=== PATIENT | male | born 1950 | race Caucasian/White ===

== ENCOUNTER 2019-06-18 14:36 | Outpatient (CLI) | payer BC, MEDICARE, SELFPAY ==
[2019-06-18 15:30] LABS: Basophils Percent Auto 0.3 % (0.2-1.2); Eosinophils Absolute Auto 0.1 K/mm3 (0-0.3); Hematocrit 37.9 % (42.0-52.0); Hemoglobin 13.2 g/dL (14.0-18.0); Immature Granulocyte Absolute 0.01 K/mm3 (0.00-0.031); Immature Granulocyte Percent A 0.2 % (0-0.5); Lymphocytes Absolute Auto 2.31 K/mm3 (0.9-3.2); Lymphocytes Percent Auto 35.2 % (18.3-44.2); Mean Corpuscular HGB Conc 34.8 g/dl (32-36); Mean Corpuscular Hemoglobin 29.9 pg (26-34); Mean Corpuscular Volume 85.7 fl (80-100); Mean Platelet Volume 10.5 fl (7.4-10.4); Monocytes Absolute Auto 0.6 K/mm3 (0.1-0.6); Monocytes Percent Auto 8.8 % (2.6-8.5); Neutrophils Absolute Auto 3.5 K/mm3 (1.3-6.7); Neutrophils Percent Auto 53.5 % (45.5-73.1); Platelet Count Result 258 k/mm3 (150-375); Red Blood Count 4.42 M/mm3 (4.6-6.20); Red Cell Distribution Width 13.2 % (11.5-14.5); White Blood Count 6.6 K/mm3 (4.5-10.0)
[2019-06-18 15:39] LABS: Alanine Aminotransferase 29 U/L (4-50); Albumin Level 4.2 g/dL (3.5-5.1); Alkaline Phosphatase 22 U/L (38-126); Aspartate Amino Transferase 29 U/L (17-59); Bilirubin,Total 0.3 mg/dL (0.2-1.3); Blood Urea Nitrogen 29 mg/dL (9-20); Calcium 9.5 mg/dL (8.4-10.2); Carbon Dioxide 24 mmol/L (22-30); Chloride 102 mmol/L (98-107); Estimated Glomerular Filt Rate 47; Glucose 109 mg/dL (75-110); Potassium 4.1 mmol/L (3.4-5.0); Sodium 140 mmol/L (137-145)
== END 2019-06-18 14:37 | disposition home or self-care (01) ==
PROVIDERS: Visit Provider Internal Medicine Cardiovascular Disease
DX: I25.10 Atherosclerotic heart disease of native coronary artery without angina pectoris (principal)
CPT/HCPCS: 36415; 80053; 85025

== ENCOUNTER → 2019-10-01 09:08 | Outpatient (REF) | payer MEDICARE, BC, SELFPAY | LOC: ANHLAB 09:08 | PROVIDERS: Visit Provider Nurse Practitioner Family | DX: C44.329 Squamous cell carcinoma of skin of other parts of face (principal) | CPT/HCPCS: 88305; 88331 ==

== ENCOUNTER 2021-02-02 12:25 | Outpatient (CLI) | payer MEDICARE, SELFPAY ==
[2021-02-02 13:07] LABS: Alanine Aminotransferase 32 U/L (4-50); Albumin Level 4.8 g/dL (3.5-5.1); Alkaline Phosphatase 25 U/L (38-126); Anion Gap 9 mmol/L (8-16); Aspartate Amino Transferase 34 U/L (17-59); Bilirubin,Total 0.7 mg/dL (0.2-1.3); Blood Urea Nitrogen 26 mg/dL (9-20); Calcium 9.7 mg/dL (8.4-10.2); Carbon Dioxide 28 mmol/L (22-30); Chloride 101 mmol/L (98-107); Estimated Glomerular Filt Rate 50; Glucose 99 mg/dL (65-110); Potassium 4.3 mmol/L (3.4-5.0); Sodium 138 mmol/L (137-145)
== END 2021-02-02 12:26 | disposition home or self-care (01) ==
LOC: ANHLAB 12:33
PROVIDERS: Visit Provider Internal Medicine Cardiovascular Disease
DX: N18.9 Chronic kidney disease, unspecified (principal)
CPT/HCPCS: 36415; 80053

== ENCOUNTER 2022-03-14 12:12 | Emergency (ER) | payer MEDICARE, SELFPAY ==
--- NOTE | ~2022-03-14 | XR_ITS ---
EXAMINATION: XR elbow LT min 3V DATE: 03/14/2022 12:38 INDICATION: Posterior left elbow pain post fall TECHNIQUE: Anteroposterior, two oblique and lateral views of the left elbow were obtained. COMPARISON: None. FINDINGS: Comminuted intra-articular fracture extending transversely through the olecranon with distraction of the main proximal fragment which includes the posterior third of the articular surface. The distracti on results in a 7 mm lucent fracture gap at the articular surface. There appears to be a second mildl y displaced fragment involving the central portion of the ulnar articular surface with approximately 1-2 mm lucent fracture gap and similar degree of step off relative to the anterior third of the artic ular surface. Small linear calcific density along the lateral margin of the lateral humeral condyle w hich could represent sequela of an avulsion fracture of the humeral footplate of the radial collatera l ligament complex. Alternatively this could represent enthesopathic calcification or heterotopic oss ification related to chronic trauma. 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 The radiocapitellar articulation with subarticular cystlike changes at the rad ial head. Left elbow joint effusion with displacement of the anterior fat pad. Prominent soft tissue swelling with subcutaneous edema primarily along the posterior and ulnar sides of the elbow, distal u pper arm and proximal forearm. IMPRESSION: 1. Mild to moderately displaced comminuted intra-articular fracture at the base of the olecranon. 2. Possible avulsion fracture of the humeral footplate of the radial collateral ligament complex. 3. 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 Reviewed, dictated and finalized at location B. AGE GRINDER
[2022-03-14 12:23] VITALS: BP 170/80; PULSE 92; RESP 16; TEMP 36.2; O2SAT 99
--- NOTE | 2022-03-14 12:40 | ED.UPPEXIN ---
HPI - Extremity Injury (Upper) General Chief Complaint: Extremity Injury, Upper Stated Complaint: left arm pain Time Seen by Provider: 03/14/22 12:45 Source: patient, RN notes reviewed and old records reviewed Mode of arrival: ambulatory Limitations: no limitations History of Present Illness HPI narrative: 71-year-old male presents to the [facility] with left elbow pain and swelling. Patient states that he tripped and fell landing on his elbow yesterday. Has full range of motion the wrist, strong steam fitter, sensation intact in all 5 fingers. Positive radial pulse with capillary refill under 2 seconds. Significant swelling noted posterior elbow. No tenderness of the proximal humerus or shoulder. No midline tenderness. Patient denies hitting head or loss of consciousness. Related Data Home Medications Medication Instructions Recorded Confirmed lisinopril 40 mg tablet 40 mg PO DAILY 03/14/22 03/14/22 ticagrelor 60 mg tablet (Brilinta) 60 mg PO DAILY 03/14/22 03/14/22 Allergies Allergy/AdvReac Type Severity Reaction Status Date / Time No Known Allergies Allergy Verified 03/14/22 12:20 Review of Systems Review of Systems: All systems reviewed & are unremarkable except as noted in HPI and below Constitutional: Constitutional: Reports no additional constitutional complaints, Denies chills and Denies fever(s) Eyes: Eyes: Reports no additional eye complaints ENT: Reports system reviewed and no additional complaints, except as documented Cardiovascular: Cardiovascular: Reports no additional cardiovascular complaints Respiratory: Respiratory: Reports no additional respiratory complaints Gastrointestinal: Gastrointestinal: Reports no additional gastrointestinal complaints Musculoskeletal: Musculoskeletal: Reports as per HPI, Reports arthralgias (Left elbow) and Reports joint swelling (Left elbow) Integumentary/Breasts: Skin/Breast: Reports system reviewed and no additional complaints, except as docu Neurologic: Reports system reviewed and no additional complaints, except as documented Psychiatric: Psychiatric: Reports no additional psychiatric complaints Allergic/Immunologic: Allergic/Immunologic: Reports no additional allergic/immunologic complaints [facility] Past Medical History Medical History Hypertension Surgical History Surgical History History of carpal tunnel release History of heart artery stent Family History Family History Father Hypertension Family history of heart disease in male family member before age 55 Mother Hypertension Family history of coronary artery disease Grandparent Family history of heart disease in male family member before age 55 Social History Social History Smoking status: Never smoker Alcohol intake: current Comments At the time of my signature, I reviewed and agree with the nursing past medical, surgical, social, and family history. There is no relevant family history pertinent to the patient complaint. Exam Const: General: healthy appearing, comfortable, no acute distress, well developed, alert and well nourished Nutritional Appearance: well nourished Orientation/consciousness: patient oriented x3 Limitations: no limitations HENMT: Head: normal to inspection Ears: external ears normal Face/Nose/Sinus: Normal external nose present Eyes: General: appearance normal, both eyes and all related structures Conjunctivae: conjunctivae normal Pupils: Equal, round and reactive pupils present Neck: Neck: normal visual inspection, full ROM, no lymphadenopathy and no meningeal signs Chest: Chest palpation & inspection: normal inspection of the chest Resp: Effort & Inspection: normal respiratory effort and no use of accessory muscles Auscultation: clear t
== END 2022-03-14 13:29 | disposition home or self-care (01) ==
PROVIDERS: Emergency Provider Nurse Practitioner; PCP Family Medicine
DX: S42.402A Unspecified fracture of lower end of left humerus, initial encounter for closed fracture (principal); I10 Essential (primary) hypertension; W01.0XXA Fall on same level from slipping, tripping and stumbling without subsequent striking against object, initial encounter
CPT/HCPCS: 29105; 73080; 99214; A4565; G0463

== ENCOUNTER 2022-03-29 08:42 | Outpatient (CLI) | payer MEDICARE, SELFPAY ==
--- NOTE | ~2022-03-29 | US_ITS ---
EXAMINATION: US carotid duplex BI DATE: 03/29/2022 09:39 INDICATION: Bilateral carotid stenosis TECHNIQUE: Grayscale, color Doppler, and pulsed Doppler images of the cervical carotid arteries were obtained. The degree of vessel stenosis is placed in one of the following categories: normal, <50%, 5 0-69%, >=70% but less than near-occlusion, near-occlusion, or total occlusion. Note that percent sten osis relative to normal distal artery lumen diameter is indirectly measured from velocity measurement s as described by Howard, et al. Radiology 2003; 229:340-346. Notes: Normal: Peak systolic velocity <125 centimeters/sec and no plaque <50%. Peak systolic velocity <125 ( EDV <40; ICA/CCA PSV ratio <2.0; used these factors only a tandem lesions or low cardiac output or co ntralateral disease) 50-69 %: PSV 125-230 (EDV 40-100; ratio 2-4) >= 70% but less than near occlusion: PSV greater than 230 (EDV > 100; ratio> 4.0) Near Occlusion: PSV that is variable; markedly narrowed lumen Occlusion: Absent flow on color/spectral Doppler and no lumen on garcia scale. COMPARISON: None. FINDINGS: RIGHT: The right common carotid artery (CCA) peak systolic velocity (PSV) is 79 cm/s. The right internal car otid artery (ICA) PSV is 88 cm/s. The right ICA end-diastolic velocity (EDV) is 25 cm/s. The right IC A/CCA PSV ratio is 1.1. The external carotid artery (ECA) PSV is 86 cm/s. There is to and fro flow in the right vertebral artery. LEFT: The left CCA PSV is 74 cm/s. The left ICA PSV is 73 cm/s. The left ICA EDV is 19 cm/s. The left ICA/C CA PSV ratio is 1.0. The ECA PSV is 94 cm/s. There is antegrade flow in the left vertebral artery. IMPRESSION: 1. Less than 50% stenosis in the right internal carotid artery by sonographic criteria. 2. Less than 50% stenosis in the left internal carotid artery by sonographic criteria. 3: To-and-fro flow within the right vertebral artery. Reviewed, dictated and finalized at location A. EMENT CLERKS MANAGER IMPRESSION: 1. Less than 50% stenosis in the right internal carotid artery by sonographic c riteria. 2. Less than 50% stenosis in the left internal carotid artery by sonographic cr iteria. 3: To-and-fro flow within the right vertebral artery.
== END 2022-03-29 08:43 | disposition home or self-care (01) ==
PROVIDERS: PCP Family Medicine; Visit Provider Internal Medicine Cardiovascular Disease
DX: I65.23 Occlusion and stenosis of bilateral carotid arteries (principal)
CPT/HCPCS: 93880

== ENCOUNTER 2022-06-07 11:03 | Outpatient (CLI) | payer MEDICARE, SELFPAY ==
[2022-06-07 20:21] LABS: Basophils Percent Auto 0.6 % (0.2-1.2); Eosinophils Absolute Auto 0.1 K/mm3 (0-0.3); Eosinophils Percent Auto 1.7 % (0-4.4); Hematocrit 40.8 % (42.0-52.0); Hemoglobin 13.1 g/dL (14.0-18.0); Immature Granulocyte Absolute 0.01 K/mm3 (0.00-0.031); Immature Granulocyte Percent A 0.2 % (0-0.5); Lymphocytes Absolute Auto 2.26 K/mm3 (0.9-3.2); Lymphocytes Percent Auto 42.2 % (18.3-44.2); Mean Corpuscular HGB Conc 32.1 g/dl (32-36); Mean Corpuscular Hemoglobin 29.1 pg (26-34); Mean Corpuscular Volume 90.7 fl (80-100); Mean Platelet Volume 11.2 fl (7.4-10.4); Monocytes Absolute Auto 0.4 K/mm3 (0.1-0.6); Neutrophils Absolute Auto 2.5 K/mm3 (1.3-6.7); Neutrophils Percent Auto 47.3 % (45.5-73.1); Platelet Count Result 322 k/mm3 (150-375); White Blood Count 5.4 K/mm3 (4.5-10.0)
[2022-06-07 20:59] LABS: Alanine Aminotransferase 26 U/L (6-50); Albumin Level 4.2 g/dL (3.5-5.1); Alkaline Phosphatase 28 U/L (38-126); Anion Gap 6 mmol/L (8-16); Aspartate Amino Transferase 48 U/L (17-59); Bilirubin,Total 0.6 mg/dL (0.2-1.3); Blood Urea Nitrogen 20 mg/dL (9-20); Calcium 9.3 mg/dL (8.4-10.2); Carbon Dioxide 30 mmol/L (22-30); Chloride 102 mmol/L (98-107); Cholesterol 232 mg/dL (0-200); Estimated Glomerular Filt Rate 46; Glucose 90 mg/dL (65-110); HDL Direct 24 mg/dL; Potassium 4.5 mmol/L (3.4-5.0); Sodium 138 mmol/L (137-145); Triglycerides 232 mg/dL (<150)
[2022-06-07 21:10] LABS: LDL Cholesterol Direct 148 mg/dL
[2022-06-07 21:32] LABS: Prostate Specific Antigen 0.9 ng/mL (< OR = 4.0)
== END 2022-06-07 11:04 | disposition home or self-care (01) ==
PROVIDERS: PCP Family Medicine; Visit Provider Family Medicine
DX: Z12.5 Encounter for screening for malignant neoplasm of prostate (principal); Z00.00 Encounter for general adult medical examination without abnormal findings; Z79.899 Other long term (current) drug therapy
CPT/HCPCS: 36415; 80053; 80061; 84153; 85025; G0103

== ENCOUNTER 2023-05-22 13:12 | Outpatient (CLI) | payer MEDICARE, SELFPAY ==
[2023-05-22 13:52] LABS: Basophils Percent Auto 0.5 % (0.2-1.2); Eosinophils Absolute Auto 0.1 K/mm3 (0-0.3); Eosinophils Percent Auto 1.3 % (0-4.4); Hematocrit 39.4 % (42.0-52.0); Hemoglobin 13.4 g/dL (14.0-18.0); Immature Granulocyte Absolute 0.02 K/mm3 (0.00-0.031); Immature Granulocyte Percent A 0.3 % (0-0.5); Lymphocytes Absolute Auto 2.58 K/mm3 (0.9-3.2); Lymphocytes Percent Auto 33.2 % (18.3-44.2); Mean Corpuscular Hemoglobin 30.2 pg (26-34); Mean Corpuscular Volume 88.7 fl (80-100); Mean Platelet Volume 10.3 fl (7.4-10.4); Monocytes Absolute Auto 0.6 K/mm3 (0.1-0.6); Monocytes Percent Auto 7.3 % (2.6-8.5); Neutrophils Absolute Auto 4.5 K/mm3 (1.3-6.7); Neutrophils Percent Auto 57.4 % (45.5-73.1); Platelet Count Result 298 k/mm3 (150-375); Red Blood Count 4.44 M/mm3 (4.6-6.20); Red Cell Distribution Width 12.7 % (11.5-14.5); White Blood Count 7.8 K/mm3 (4.5-10.0)
[2023-05-22 14:02] LABS: Alanine Aminotransferase 28 U/L (6-50); Albumin Level 4.2 g/dL (3.5-5.1); Alkaline Phosphatase 26 U/L (38-126); Anion Gap 9 mmol/L (8-16); Aspartate Amino Transferase 29 U/L (17-59); Bilirubin,Total 0.6 mg/dL (0.2-1.3); Blood Urea Nitrogen 29 mg/dL (9-20); Calcium 9.5 mg/dL (8.4-10.2); Carbon Dioxide 26 mmol/L (22-30); Chloride 104 mmol/L (98-107); Estimated Glomerular Filt Rate 46; Glucose 93 mg/dL (65-110); Potassium 5.2 mmol/L (3.4-5.0); Sodium 139 mmol/L (137-145)
== END 2023-05-22 13:13 | disposition home or self-care (01) ==
PROVIDERS: PCP Family Medicine; Visit Provider Internal Medicine Cardiovascular Disease
DX: Z01.810 Encounter for preprocedural cardiovascular examination (principal); R94.39 Abnormal result of other cardiovascular function study
CPT/HCPCS: 36415; 80053; 85025

== ENCOUNTER 2023-07-24 13:01 | Outpatient (CLI) | payer MEDICARE, SELFPAY ==
[2023-07-24 13:57] LABS: Anion Gap 8 mmol/L (4-12); Blood Urea Nitrogen 23 mg/dL (9-20); Calcium 9.7 mg/dL (8.4-10.2); Carbon Dioxide 26 mmol/L (22-30); Chloride 103 mmol/L (98-107); Estimated Glomerular Filt Rate 43; Glucose 108 mg/dL (65-110); Potassium 4.1 mmol/L (3.4-5.0); Sodium 137 mmol/L (137-145)
== END 2023-07-24 13:02 | disposition home or self-care (01) ==
PROVIDERS: PCP Family Medicine; Visit Provider Family Medicine
DX: E87.5 Hyperkalemia (principal)
CPT/HCPCS: 36415; 80048

== ENCOUNTER 2024-01-08 14:28 | Outpatient (CLI) | payer MEDICARE, SELFPAY ==
--- NOTE | ~2024-01-08 | XR_ITS ---
XR hand RT min 3V Ordering provider: Jesus Manjarrez MD History: . PAIN IN 4TH DIGIT, UNABLE TO MOVE FINGER, NO INJURY . Comparison: None. FINDINGS: BONES: No acute fracture or dislocation. JOINT SPACES: Narrowing of the distal interphalangeal joints suggestive of osteoarthritic changes. SOFT TISSUES: Normal. IMPRESSION: No acute osseous abnormality right hand. Reviewed, dictated and finalized at location A.
[2024-01-08 14:43] LABS: Hemoglobin 12.5 g/dL (14.0-18.0); Mean Corpuscular HGB Conc 33.8 g/dl (32-36); Mean Corpuscular Hemoglobin 30.1 pg (26-34); Mean Corpuscular Volume 89.2 fl (80-100); Mean Platelet Volume 9.7 fl (7.4-10.4); Platelet Count Result 334 k/mm3 (150-375); Red Blood Count 4.15 M/mm3 (4.6-6.20); Red Cell Distribution Width 13.2 % (11.5-14.5); White Blood Count 7.8 K/mm3 (4.5-10.0)
[2024-01-08 14:55] LABS: Alanine Aminotransferase 31 U/L (6-50); Albumin Level 4.6 g/dL (3.5-5.1); Alkaline Phosphatase 29 U/L (38-126); Anion Gap 11 mmol/L (4-12); Aspartate Amino Transferase 30 U/L (17-59); Bilirubin,Total 0.6 mg/dL (0.2-1.3); Blood Urea Nitrogen 29 mg/dL (9-20); Carbon Dioxide 27 mmol/L (22-30); Chloride 102 mmol/L (98-107); Cholesterol 229 mg/dL (0-200); Estimated Glomerular Filt Rate 37; Glucose 100 mg/dL (65-110); HDL Direct 34 mg/dL; Potassium 5.1 mmol/L (3.4-5.0); Sodium 140 mmol/L (137-145); Triglycerides 178 mg/dL (<150)
[2024-01-08 15:05] LABS: LDL Cholesterol Direct 168 mg/dL
[2024-01-08 15:39] LABS: Prostate Specific Antigen 0.9 ng/mL (< OR = 4.0)
== END 2024-01-08 14:29 | disposition home or self-care (01) ==
LOC: ANHIMG 14:28
PROVIDERS: PCP Family Medicine; Visit Provider Family Medicine
DX: Z12.5 Encounter for screening for malignant neoplasm of prostate (principal); M25.541 Pain in joints of right hand; E78.00 Pure hypercholesterolemia, unspecified; E87.5 Hyperkalemia; G47.30 Sleep apnea, unspecified; I10 Essential (primary) hypertension; I21.9 Acute myocardial infarction, unspecified
CPT/HCPCS: 36415; 73130; 80053; 80061; 84153; 85027; G0103

== ENCOUNTER 2024-01-17 09:00 | Outpatient (CLI) | payer MEDICARE, SELFPAY ==
[2024-01-17 10:08] LABS: Mean Corpuscular HGB Conc 34.2 g/dl (32-36); Mean Corpuscular Hemoglobin 30.7 pg (26-34); Mean Corpuscular Volume 89.6 fl (80-100); Mean Platelet Volume 10.4 fl (7.4-10.4); Platelet Count Result 309 k/mm3 (150-375); Red Blood Count 4.24 M/mm3 (4.6-6.20); Red Cell Distribution Width 12.9 % (11.5-14.5); White Blood Count 5.8 K/mm3 (4.5-10.0)
[2024-01-17 10:16] LABS: Alanine Aminotransferase 25 U/L (6-50); Albumin Level 4.8 g/dL (3.5-5.1); Alkaline Phosphatase 25 U/L (38-126); Anion Gap 10 mmol/L (4-12); Aspartate Amino Transferase 27 U/L (17-59); Bilirubin,Total 0.7 mg/dL (0.2-1.3); Blood Urea Nitrogen 32 mg/dL (9-20); Calcium 9.9 mg/dL (8.4-10.2); Carbon Dioxide 27 mmol/L (22-30); Chloride 98 mmol/L (98-107); Cholesterol 235 mg/dL (0-200); Estimated Glomerular Filt Rate 33; Glucose 99 mg/dL (65-110); HDL Direct 33 mg/dL; Potassium 5.1 mmol/L (3.4-5.0); Sodium 135 mmol/L (137-145); Triglycerides 156 mg/dL (<150)
[2024-01-17 10:27] LABS: LDL Cholesterol Direct 164 mg/dL
[2024-01-17 10:33] LABS: Iron 101 ug/dL (49-181)
[2024-01-17 10:40] LABS: Creatinine Urine 134.3 mg/dL
[2024-01-17 10:42] LABS: Percent Iron Saturation 37 % (20-50)
[2024-01-17 10:44] LABS: MALB Creatinine Ratio 33.6 mg/g (0-30); Microalbumin Urine Random 45.1 mg/L (0-16.7)
[2024-01-17 10:46] LABS: Prostate Specific Antigen 1.2 ng/mL (< OR = 4.0)
[2024-01-17 10:47] LABS: Hemoglobin A1C 6.2 % (<5.7)
== END 2024-01-17 09:01 | disposition home or self-care (01) ==
PROVIDERS: PCP Family Medicine; Visit Provider Family Medicine
DX: D64.9 Anemia, unspecified (principal); Z12.5 Encounter for screening for malignant neoplasm of prostate; E11.22 Type 2 diabetes mellitus with diabetic chronic kidney disease; N18.9 Chronic kidney disease, unspecified
CPT/HCPCS: 36415; 80053; 80061; 82043; 82607; 82728; 83036; 83540; 83550; 84153; 85027; G0103

== ENCOUNTER 2024-01-21 10:16 | Outpatient (CLI) | payer MEDICARE, SELFPAY ==
[2024-01-21 10:59] LABS: IFOB Positive Control Positive; Immunochemical Fecal Occult Bl Negative (N)
== END 2024-01-21 10:17 | disposition home or self-care (01) ==
PROVIDERS: PCP Family Medicine; Visit Provider Family Medicine
DX: D64.9 Anemia, unspecified (principal)
CPT/HCPCS: 82274

== ENCOUNTER 2024-04-10 14:17 | Outpatient (CLI) | payer MEDICARE, SELFPAY ==
--- NOTE | ~2024-04-10 | US_ITS ---
EXAMINATION: US renal BI DATE: 04/10/2024 14:59 INDICATION: Chronic kidney disease, stage III. TECHNIQUE: Multiple ultrasound grayscale images of the kidneys were obtained. COMPARISON: Ultrasound 01/12/2018 FINDINGS: The right kidney measures 10.4 x 4.6 x 3.7 cm. The left kidney measures 12.1 x 4.6 x 3.6 cm. The kidn eys demonstrate normal parenchymal echogenicity. There is no hydronephrosis. The bladder is normal. IMPRESSION: 1. Normal kidneys. No hydronephrosis. Reviewed, dictated and finalized at location A. OR ART DIRECTOR
== END 2024-04-10 14:18 | disposition home or self-care (01) ==
PROVIDERS: PCP Family Medicine; Visit Provider Internal Medicine Nephrology
DX: N18.32 Chronic kidney disease, stage 3b (principal); I10 Essential (primary) hypertension
CPT/HCPCS: 76775

== ENCOUNTER 2024-05-10 10:06 | Outpatient (CLI) | payer MEDICARE, SELFPAY ==
[2024-05-10 10:39] LABS: Albumin Level 4.4 g/dL (3.5-5.1); Anion Gap 11 mmol/L (4-12); Blood Urea Nitrogen 27 mg/dL (9-20); Calcium 9.4 mg/dL (8.4-10.2); Carbon Dioxide 23 mmol/L (22-30); Chloride 105 mmol/L (98-107); Estimated Glomerular Filt Rate 46; Glucose 103 mg/dL (65-110); Phosphorus 4.2 mg/dL (2.5-4.5); Potassium 4.4 mmol/L (3.4-5.0); Sodium 139 mmol/L (137-145)
[2024-05-10 10:44] LABS: Complement C3 127 mg/dL (88-165)
[2024-05-12 15:32] LABS: Protein, Total 7.2 g/dL (6.1-8.1)
[2024-05-13 10:39] LABS: Albumin 4.3 g/dL (3.8-4.8); Alpha 1 Globulin 0.3 g/dL (0.2-0.3); Alpha 2 Globulin 0.8 g/dL (0.5-0.9); Beta 1 Globulin 0.4 g/dL (0.4-0.6); Gamma Globulin 0.9 g/dL (0.8-1.7)
[2024-05-13 13:24] LABS: ANCA Screen NEGATIVE (NEGATIVE)
[2024-05-13 15:13] LABS: Anti Glomerular Basement Memb <1.0 AI
== END 2024-05-10 10:07 | disposition home or self-care (01) ==
PROVIDERS: PCP Family Medicine; Visit Provider Internal Medicine Nephrology
DX: I12.9 Hypertensive chronic kidney disease with stage 1 through stage 4 chronic kidney disease, or unspecified chronic kidney disease (principal); N18.32 Chronic kidney disease, stage 3b
CPT/HCPCS: 36415; 80069; 83520; 84155; 84165; 86036; 86038; 86039; 86160; 86225

== ENCOUNTER 2024-05-12 11:11 | Outpatient (CLI) | payer MEDICARE, SELFPAY ==
[2024-05-12 12:03] LABS: Creatinine Urine 72.9 mg/dL; Total Protein Urine Random 11 mg/dL; Ur Ttl Prot Creatinine Ratio 0.15 mg/mg (0-0.20)
== END 2024-05-12 11:12 | disposition home or self-care (01) ==
LOC: ANHLAB 11:12
PROVIDERS: PCP Family Medicine; Visit Provider Internal Medicine Nephrology
DX: I12.9 Hypertensive chronic kidney disease with stage 1 through stage 4 chronic kidney disease, or unspecified chronic kidney disease (principal); N18.9 Chronic kidney disease, unspecified
CPT/HCPCS: 82570; 84156

== ENCOUNTER 2024-07-22 12:21 | Outpatient (CLI) | payer MEDICARE, SELFPAY ==
--- NOTE | ~2024-07-22 | US_ITS ---
EXAMINATION: US carotid duplex BI DATE: 07/22/2024 13:16 INDICATION: Carotid bruit TECHNIQUE: Grayscale, color Doppler, and pulsed Doppler images of the cervical carotid arteries were obtained. The degree of vessel stenosis is placed in one of the following categories: normal, <50%, 5 0-69%, >=70% but less than near-occlusion, near-occlusion, or total occlusion. Note that percent sten osis relative to normal distal artery lumen diameter is indirectly measured from velocity measurement s as described by Howard, et al. Radiology 2003; 229:340-346. Notes: Normal: Peak systolic velocity <125 centimeters/sec and no plaque <50%. Peak systolic velocity <125 ( EDV <40; ICA/CCA PSV ratio <2.0; used these factors only a tandem lesions or low cardiac output or co ntralateral disease) 50-69 %: PSV 125-230 (EDV 40-100; ratio 2-4) >= 70% but less than near occlusion: PSV greater than 230 (EDV > 100; ratio> 4.0) Near Occlusion: PSV that is variable; markedly narrowed lumen Occlusion: Absent flow on color/spectral Doppler and no lumen on garcia scale. COMPARISON: Carotid ultrasound dated 03/29/2022. FINDINGS: RIGHT: The right common carotid artery (CCA) peak systolic velocity (PSV) is 102 cm/s. The right internal ca rotid artery (ICA) PSV is 110 cm/s. The right ICA end-diastolic velocity (EDV) is 23 cm/s. The right ICA/CCA PSV ratio is 1.1. The external carotid artery (ECA) PSV is 196 cm/s. There is antegrade flow in the right vertebral artery. LEFT: The left CCA PSV is 110 cm/s. The left ICA PSV is 76 cm/s. The left ICA EDV is 12 cm/s. The left ICA/ CCA PSV ratio is 0.8. The ECA PSV is 135 cm/s. There is antegrade flow in the left vertebral artery. IMPRESSION: 1. Less than 50% stenosis in the right internal carotid artery by sonographic criteria. 2. Less than 50% stenosis in the left internal carotid artery by sonographic criteria. Reviewed, dictated and finalized at location A. IMPRESSION: 1. Less than 50% stenosis in the right internal carotid artery by sonographic c sharla. 2. Less than 50% stenosis in the left internal carotid artery by sonographic raman dacosta.
--- OUTSIDE RECORDS SUMMARY | 2024-07-22 14:18 | XMS_ITS | Encounter Summary ---
Author Organization [facility] Address [address] [place] [address] Phone Care Team Providers Care Shaper Set Up Operator Name Role Phone Jesus Manjarrez MD Primary Care Provider [phone] Manjeet Knight DO Primary Care Provider [phone] Jesus Manjarrez MD Primary Care Provider [phone] Encounter Details Date Type Department Care Team (Late st Contact Info) Description 09/05/2019 Telephone [facility] Oncology [facility] 7th [place] [address] [place] [address] Aracelis De Leon Social History Tobacco Use Types Packs/Day Years Used Date Smoking Tobacco: Never Smokeless Tobacco: Never Alcohol Use Standard Drinks/Week Comments No 0 (1 standard drink = 0.6 oz pur e alcohol) Sex and Gender Information Value Date Recorded Sex Assigned at Not on file Legal Sex Male 2:07 AM UROLOGY NURSE Gender Identity Not on file Sexual Orientation Not on file documented as of this encounter Plan of Treatment Not on file documented as of this encounter Visit Diagnoses Not on filedocumented in this encounter Care Teams Shaper Set Up Operator Relationship Specialty Start Date End Date Jesus Manjarrez MD PCP - General Family Practice 06/18/19 09/28/20 Manjeet Knight DO PCP - General Family Medicine 09/29/20 04/17/23 Jesus Manjarrez MD PCP - General Family Practice 04/18/23 documented as of this encounter
--- OUTSIDE RECORDS SUMMARY | 2024-07-22 14:18 | XMS_ITS | Referral Summary ---
Author Organization [facility] [address] [place] [address] [address] [facility] [address] [place] [address] Care Team Providers Care In Home Nanny Name Role Phone Jesus Manjarrez MD Primary Care Provider [phone] Encounters Date Type Department Care Team Description 07/01/2024 1:30 PM WOOD TECHNOLOGIST Office Visit [facility] Medical [facility] Cardiology [address] [facility] [address] [place] [address] Isabel Agarwal NP Coronary artery disease involving houlton coronary artery of houlton heart without angina pectoris; Status post angioplasty with stent; Mixed dyslipidemia; Lipid screening; Statin intolerance; Essential hypertension; Bruit of right carotid artery 06/03/2024 Telephone [facility] Medical [facility] Cardiology [address] [facility] [address] [place] [address] Godfrey Blanchard MD Med Refill from Last 3 Months Allergies No known active allergies Medications multivitamin-securities compliance examiner als-lutein tablet Take by mouth daily. Active calcium-vitamin D3-vitamin K 500 mg-1,000 unit-40 mcg tablet,chewable Take by mouth daily. Active cholecalciferol (VITAMIN D-3) 1,000 unit Take 1 tablet/caps ule (1,000 Units total) by mouth daily Active coenzyme Q10 100 mg capsule Take 1 capsule (100 mg total) by mouth daily Active garlic 500 mg tablet Take by mouth Active turmeric root extract 500 mg capsule Take by mouth Active nitroglycerin (NITROSTAT) 0.[address] 1 tablet (0.4 mg total) under the tongue every 5 (five) minutes as needed for chest pain May repeat dose q 5 min, up to 3 doses total 90 tablet 3 3 Active aspirin 81 mg enteric coated tablet Take 1 tablet (81 mg total) by mouth daily 30 tablet 11 3 Active isosorbide mononitrate ER (IMDUR) 30 mg 24 hr tablet TAKE 1 TABLET(30 MG) BY MOUTH DAILY 30 tablet 4 Active amLODIPine (NORVASC) 10 mg tablet TAKE 1 TABLET(10 MG) BY MOUTH DAILY 30 tablet 4 Active lisinopriL (PRINIVIL,ZESTRIL) 40 mg tablet TAKE 1 TABLET(40 MG) BY MOUTH DAILY 90 tablet 5 Active clopidogreL (PLAVIX) 75 mg tablet Take 1 tablet (75 mg total) by mouth daily 90 tablet 5 Active metoprolol XL (TOPROL-XL) 25 mg extended release tabletIndications: Coronary artery disease involving houlton coronary artery of houlton heart without angina pectoris Take 1 tablet (25 mg total) by mouth daily 90 tablet 3 5 07/02/19 26 Active evolocumab (REPATHA) syringe syringeIndications :atherosclerotic cardiovascular disease Inject 1 mL (140 mg total) under the skin every 14 (fourteen) days 2 mL 5 Active metoprolol (LOPRESSOR) 50 mg tablet TAKE 1 TABLET BY MOUTH TWICE DAILY WITH MEALS 180 tablet 3 0 07/02/19 25 Discontin ued(Alter rodriguez therapy) evolocumab (Repatha Pushtronex) 420 mg/3.5 mL wearable injector Inject 420 mg under the skin every 30 (thirty) days 3.5 mL 2 07/02/19 25 Discontin ued(Alter rodriguez therapy) bempedoic acid-ezetimibe 180-10 mg tablet Take 1 tablet/caps ule by mouth daily 30 tablet 11 3 07/02/19 25 Discontin ued(Alter rodriguez therapy) rosuvastatin (CRESTOR) 40 mg tablet Take 1 tablet (40 mg total) by mouth nightly 30 tablet 11 4 07/02/19 25 Discontin ued(Other ) Active Problems Problem Noted Date Diagnosed Date Abnormal stress test 05/07/2023 Chest pain 05/07/2023 Squamous cell carcinoma of skin of other parts o f face 09/09/2019 Chronic kidney disease 06/15/2016 Overview (08/04/2016): Chronic kidney disease, unspecified stage Immunizations Immunization Administration Dates Next Due Influenza, Quadrivalent, Spl it, Preservative Free, Intramuscular 03/20/2019 Pneumococcal Polysaccharide PPV23 03/20/2019 Tdap 03/20/2019 Social History Tobacco Use Types Packs/Day Years Used Date Smoking Tobacco: Never Smokeless Tobacco: Never Tobacco Cessation:Counseling Given: Not Answered Alcohol Use Standard Drinks/Week Comments No 0 (1 standard drink = 0.6 oz pur e alcohol) Personal Safety Answer Date Recorded Have you ever been in or are you currently in a harmful physical or emotional relationship or is someone making you feel afraid or unsafe? Denies 05/25/2023 Sex and Gender Information Value Date Recorded Sex Assigned at Not on file Legal Sex Male 2:07 AM WOOD TECHNOLOGIST Gender Identity Not on file Sexual Orientation Not on file Last Filed Vital Signs Vital Sign Reading Time Taken Comments Blood Pressure 160/68 07/01/2024 1:39 PM WOOD TECHNOLOGIST Pulse 77 07/01/2024 1:39 PM WOOD TECHNOLOGIST Temperature 36.6 C (97.8 F) 05/25/2023 7:52 AM WOOD TECHNOLOGIST Respiratory Rate 18 05/25/2023 12:05 PM WOOD TECHNOLOGIST Oxygen Saturation 98% 07/01/2024 1:39 PM WOOD TECHNOLOGIST Inhaled Oxygen Concentration - - Weight 83 kg (183 lb) 07/01/2024 1:39 PM WOOD TECHNOLOGIST Height 172.7 cm (5' 8 ) 07/01/2024 1:39 PM WOOD TECHNOLOGIST Body Mass Index 27.83 07/01/2024 1:39 PM WOOD TECHNOLOGIST Plan of Treatment Not on file Medical Devices Implanted Type Area Chargeback Specialist Device Identifier Shelf Expiration Date Model / Serial / Lot COSMIC COLOR Device Vascular Closure Femoral Artery Bioabsorbable Dual Method Vascade 6-7fr Collagen [id number] - [id number] Implanted:Qty: 1 on 05/25/2023 by Godfrey Blanchard MD at [facility] 12/21/2024 [id number] / / [id number] Procedures Procedure Name Priority Date/Time Associated Diagnosis Comments POCT LIPID PANEL Routine 07/01/2024 1:47 PM WOOD TECHNOLOGIST Lipid screening from Last 3 Months Results * POCT lipid panel (07/01/2024 1:47 PM WOOD TECHNOLOGIST) Cholesterol, POC 249 mg/dL HDL, POC 15 mg/dL Triglycerides, POC 92 mg/dL LDL Cholesterol POC 217 mg/dL Chol/HDL Ratio, POC - Non-HDL Cholesterol, POC - mg/dL Cholesterol Total, POC 249 mg/dL Capillary blood 07/01/2024 1 :47 PM WOOD TECHNOLOGIST Isabel Agarwal NP POINT OF CARE TEST ORDERA BLES Final Result from Last 3 Months Insurance MEDICARE [employer] [facility] Address: [address] [address] Care Teams In Home Nanny Relationship Specialty Start Date End Date Jesus Manjarrez MD PCP - General Family Practice 04/18/23
--- OUTSIDE RECORDS SUMMARY | 2024-07-22 14:18 | XMS_ITS ---
Author Organization [facility] [address] Address [address] [place] [address] Care Team Providers Care Automotive Worker Name Role Phone Jesus Manjarrez MD Primary Care Provider [phone] Active Problems Problem Noted Date Diagnosed Date Abnormal stress test 05/07/2023 Chest pain 05/07/2023 Squamous cell carcinoma of skin of other parts o f face 09/09/2019 Chronic kidney disease 06/15/2016 Overview (08/04/2016): Chronic kidney disease, unspecified stage Current Treatment and Therapy Plans No current plan information found. Past Treatment and Therapy Plans No past plan information found. Lifetime Dose Tracking * Chemical Lifetime Dose Automatic Entry Manual Entr y Air kerma at the reference point (Ka,r) 304 mGy 0 mGy 304 mGy
--- OUTSIDE RECORDS SUMMARY | 2024-07-22 14:18 | XMS_ITS | Encounter Summary ---
Author Organization [facility] Address [address] [place] [address] Care Team Providers Care Market Research Worker Name Role Phone Manjeet Knight DO Primary Care Provider Christa Mary MD Primary Care Provider [phone] Encounter Details Date Type Department Care Team (Late st Contact Info) Description 10/14/2020 [employer] Message Enc [facility] Family Medicine - [place] [address], [address] [place] [address] [facility] Medication Social History Tobacco Use Types Packs/Day Years Used Date Smoking Tobacco: Never Smokeless Tobacco: Never Alcohol Use Standard Drinks/Week Comments No 0 (1 standard drink = 0.6 oz pur e alcohol) AUDIT-C Answer Date Recorded Frequency of Alcohol Consumption Never 03/20/2019 Average Number of Drinks Not on file 019 Frequency of Binge Drinking Not on file 03/01 PHQ-2 Answer Date Recorded PHQ-2 Score - If the patient scores above 3, please move on to questions 3-9 0 04/08/2020 Sex and Gender Information Value Date Recorded Sex Assigned at Not on file Legal Sex Male 6:49 PM CDT Gender Identity Not on file Sexual Orientation Not on file documented as of this encounter Plan of Treatment Not on file documented as of this encounter Visit Diagnoses Not on filedocumented in this encounter Care Teams Market Research Worker Relationship Specialty Start Date End Date Manjeet Knight DO PCP - General FAMILY PRACTICE 04/16/20 04/18/22 Christa Mary MD [address] [place] [address] PCP - General FAMILY PRACTICE 05/02/22 04/02/23 documented as of this encounter
--- OUTSIDE RECORDS SUMMARY | 2024-07-22 14:18 | XMS_ITS | Encounter Summary ---
Author Organization [facility] Address [facility] [place] [address] Care Team Providers Care Aquatic Ecologist Name Role Phone Chrisat Mary MD Primary Care Provider [phone] Encounter Details Date Type Department Care Team (Late st Contact Info) Description 06/30/2022 [employer] Message Enc [facility] Family Medicine [address] [address] [facility] Provider Overdue for Annual Physical Social History Tobacco Use Types Packs/Day Years [...] on filedocumented in this encounter Care Teams Aquatic Ecologist Relationship Specialty Start Date End Date Christa Mary MD [address] [place] [address] PCP - General FAMILY PRACTICE 05/02/22 04/02/23 documented as of this encounter
--- OUTSIDE RECORDS SUMMARY | 2024-07-22 14:18 | XMS_ITS | Encounter Summary ---
Author Organization [facility] Address [address] [facility] [address] [place] [address] Care Team Providers Care Cooling System Operator Name Role Phone Alexy Fernandez MD Primary Care Provider [phone] Alexy Fernandez MD Primary Care Provider [phone] Jesus Manjarrez MD Primary Care Provider [phone] Manjeet Knight DO Primary Care Provider [phone] Jesus Manjarrez MD Primary Care Provider [phone] Encounter Details Date Type Department Care Team (Late st Contact Info) Description 06/01/2016 Orders Only [facility] ProviderMony MD [address] [place] [address] Social History Tobacco Use Types Packs/Day Years Used Date Smoking Tobacco: Former Alcohol Use Standard Drinks/Week Comments Yes 0 (1 standard drink = 0.6 oz pur e alcohol) Sex and Gender Information Value Date Recorded Sex Assigned at Not on file Legal Sex Male 2:07 AM CLAIMS CUSTOMER SERVICE REPRESENTATIVE Gender Identity Not on file Sexual Orientation Not on file documented as of this encounter Plan of Treatment Not on file documented as of this encounter Procedures Procedure Name Priority Date/Time Associated Diagnosis Comments CARDIOLOGY REPORT 06/01/2016 documented in this encounter Results * CARDIOLOGY REPORT (06/01/2016) Anatomical Region Laterality Modality Other Narrative 06/01/2016 Ordered by an unspecified provider. us Historical Provider [facility] YUMIKO BAZAN Final Result documented in this encounter Visit Diagnoses Not on filedocumented in this encounter Care Teams Cooling System Operator Relationship Specialty Start Date End Date Alexy Fernandez MD [address] [place] [address] PCP - General 07/28/16 06/17/19 Alexy Fernandez MD [address] [place] [address] PCP - General 12/09/13 07/27/16 Jesus Manjarrez MD [address] [place] [address] PCP - General Family Practice 06/18/19 09/28/20 Manjeet Knight DO [address] [place] [address] PCP - General Family Medicine 09/29/20 04/17/23 Jesus Manjarrez MD [address] [place] [address] PCP - General Family Practice 04/18/23 documented as of this encounter
--- OUTSIDE RECORDS SUMMARY | 2024-07-22 14:18 | XMS_ITS | Clinical Summary ---
Author Organization [facility] [place] [address] Address [address] [place] [address] Care Team Providers Care Deep Tissue Massage Therapist Name Role Phone Jesus Manjarrez MD Primary Care Provider [phone] Allergies No known active allergies Medications multivitamin-facility examiner als-lutein tablet Take by mouth daily. [...] TABLET(30 MG) BY MOUTH DAILY 30 tablet 11 4 Active amLODIPine (NORVASC) 10 mg tablet [...] extended release tabletIndications: Coronary artery disease involving [place] coronary artery of [place] heart without angina pectoris Take 1 tablet (25 mg total) by mouth daily 90 tablet 3 5 07/02/19 26 Active evolocumab (REPATHA) syringe syringeIndications :atherosclerotic cardiovascular disease Inject 1 mL (140 mg total) under the skin every 14 (fourteen) days 2 mL 11 5 Active metoprolol (LOPRESSOR) 50 mg tablet TAKE 1 TABLET BY MOUTH TWICE DAILY WITH MEALS 180 tablet 3 0 07/02/19 25 Discontin ued(Alter rodriguez therapy) evolocumab (Repatha Pushtronex) 420 mg/3.5 mL wearable injector Inject 420 mg under the skin every 30 (thirty) days 3.5 mL 11 2 07/02/19 25 Discontin ued(Alter rodriguez therapy) [...] Overview (08/04/2016): Chronic kidney disease, unspecified stage Encounters Date Type Department Care Team Description 07/01/2024 1:30 PM HEALTH CARE SOCIAL WORKER Office Visit [facility] Cardiology [address] [place] [address] Isabel Agarwal NP Coronary artery disease involving [place] coronary artery of [place] heart without angina pectoris; Status post angioplasty with stent; Mixed dyslipidemia; Lipid screening; Statin intolerance; Essential hypertension; Bruit of right carotid artery 06/03/2024 Telephone [facility] Cardiology [address] [place] [address] Godfrey Blanchard MD Med Refill from Last 3 Months Immunizations Immunization Administration Dates Next Due Influenza, Quadrivalent, Spl it, Preservative Free, Intramuscular 03/20/2019 Pneumococcal Polysaccharide PPV23 03/20/2019 Tdap 03/20/2019 Surgical History Surgery Date Site/Laterality Comments CARPAL TUNNEL RELEASE FOOT SURGERY TONSILLECTOMY COLONOSCOPY APPENDECTOMY Medical History Medical History Date Comments Hx Other Medical CAD status post stemi January 2009 with bare-metal; Comments: [facility] 12/19/2013 - Coronary artery disease Hypertension Hyperlipidemia Sleep apnea Family History Medical History Relation Name Comments Heart failure Father Skin cancer Maternal Grandfather Skin cancer Maternal Grandmother Heart failure Mother Relation Name Status Comments Father (Age 82) Maternal Grandfather Maternal Grandmother Mother (Age 65) Social History Tobacco Use Types Packs/Day Years [...] on file Legal Sex Male 2:07 AM HEALTH CARE SOCIAL WORKER Gender Identity Not on file Sexual Orientation Not on file Obstetrics History Last Filed Vital Signs Vital Sign Reading Time Taken Comments Blood Pressure 160/68 07/01/2024 1:39 PM HEALTH CARE SOCIAL WORKER Pulse 77 07/01/2024 1:39 PM HEALTH CARE SOCIAL WORKER Temperature 36.6 C (97.8 F) 05/25/2023 7:52 AM HEALTH CARE SOCIAL WORKER Respiratory Rate 18 05/25/2023 12:05 PM HEALTH CARE SOCIAL WORKER Oxygen Saturation 98% 07/01/2024 1:39 PM HEALTH CARE SOCIAL WORKER Inhaled Oxygen Concentration - - Weight 83 kg (183 lb) 07/01/2024 1:39 PM HEALTH CARE SOCIAL WORKER Height 172.7 cm (5' 8 ) 07/01/2024 1:39 PM HEALTH CARE SOCIAL WORKER Body Mass Index 27.83 07/01/2024 1:39 PM HEALTH CARE SOCIAL WORKER Plan of Treatment Health Maintenance Due Date Last Done Comments Colon Cancer Screening-Colonoscopy 1950 Depression Screening 1950 Hepatitis C Screening 1950 Hepatitis B Screening 1968 Zoster Vaccine (1 of 2) 2000 Abdominal Aortic Aneurysm (AAA) Screen 07/21/2015 Well Visit 65+ 07/21/2015 Pneumococcal vaccine 65+ (2 of 2 - PCV) 03/20/2020 1 05/20/2018 Influenza Vaccine (#1) 2023 04/19/2020, 2018 Fall Risk Assessment 05/25/2024 05/25/2023, 02/03/20 DTaP/Tdap/Td Vaccine (2 - Td or Tdap) 03/20/2029 Medical Devices Implanted Type Area Managing Consultant Device Identifier Shelf Expiration Date Model / Serial / Lot Body Central Device Vascular Closure Femoral Artery Bioabsorbable Dual Method Vascade 6-7fr Collagen [id number] - [id number] Implanted:Qty: 1 on 05/25/2023 by Godfrey Blanchard MD at [facility] [employer] 12/21/2024 [id number] / / [id number] Procedures Procedure Name Priority Date/Time Associated Diagnosis Comments POCT LIPID PANEL Routine 07/01/2024 1:47 PM HEALTH CARE SOCIAL WORKER Lipid screening from Last 3 Months Results * POCT lipid panel (07/01/2024 1:47 PM HEALTH CARE SOCIAL WORKER) Cholesterol, POC 249 mg/dL HDL, POC 15 mg/dL Triglycerides, POC 92 mg/dL LDL Cholesterol POC 217 mg/dL Chol/HDL Ratio, POC - Non-HDL Cholesterol, POC - mg/dL Cholesterol Total, POC 249 mg/dL Capillary blood 07/01/2024 1 :47 PM HEALTH CARE SOCIAL WORKER Isabel Agarwal NP POINT OF CARE TEST ORDERA BLES Final Result from Last 3 Months Insurance MEDICARE Shippable [facility] MEDICARE ADVANTAGE Care Teams Deep Tissue Massage Therapist Relationship Specialty Start Date End Date Jesus Manjarrez MD PCP - General Family Practice 04/18/23
--- OUTSIDE RECORDS SUMMARY | 2024-07-22 14:19 | XMS_ITS | CONTINUITY OF CARE DOCUMENT ---
Author Name scarlet novak Address Unknown Organization [facility] Address [address] [facility] [address] [place] [address] Phone [phone] Care Team Providers Care Geomorphologist Name Role Phone Jef Thompson MD Unavailable [phone] Jef Thompson MD Unavailable [phone] INSURANCE PROVIDERS Payer name Policy type / Coverage type [place] party ID [id number] ADVANTAGE PLAN 2 (HMO-POS) Medicare [id number]
--- OUTSIDE RECORDS SUMMARY | 2024-07-22 14:19 | XMS_ITS | Clinical Summary ---
Author Organization [facility] Address [facility] [place] [address] Care Team Providers Care Microsoft Dynamics Ax Consultant Name Role Phone Unavailable Primary Care Provider Unavailabl e Allergies No known active allergies Medications aspirin 81 MG tablet 81 mg. 12/09/2013 Active atorvastatin 80 MG tablet Take 80 mg by mouth daily. 0 10/19/2018 Active fish oil 1000 MG Cap capsule 06/15/2016 Active Calcium-Vitamin D-Vitamin K 500-1000-40 MG-UNT-MCG Chew Tab Chew by mouth daily. Active metoprolol tartrate 50 MG tablet Take 50 mg by mouth 2 (two) times daily. 0 03/15/2019 Active Nitroglycerin 400 MCG/SPRAY Aero Soln 06/15/2016 Active CPAP SUPPLIESIndicatio ns:ALEX (obstructive sleep apnea) Take 1 each by mouth nightly. 1 Device 03/21/2019 Active BLOOD PRESSURE CUFF, DME,Indications:E ssential hypertension 1 Device by Does not apply route daily. 1 Device 07/04/2019 Active vitamin D3, cholecalciferol, (VITAMIN D) 1000 UNIT Tab tablet Take 1,000 Units by mouth daily. Active coenzyme Q10 (H2Q) 100 MG capsule Take 100 mg by mouth daily. Active Garlic Oil (HM GARLIC) 500 MG Tab Take 1 tablet by mouth daily. Active Turmeric Curcumin 500 MG Cap Take 1 tablet by mouth daily. Active BRILINTA 60 MG tabletIndications :Hx of [place] use of blood thinners TAKE 1 TABLET(60 MG) BY MOUTH TWICE DAILY 180 tablet 3 04/05/2021 Active Active Problems Problem Noted Date Diagnosed Date Obstructive sleep apnea syndrome 04/16/2020 Squamous cell carcinoma of skin of other parts o f face 09/09/2019 SK (seborrheic keratosis) 04/04/2019 Coronary artery disease with out angina pectoris, unspecified vessel or lesion type, unspecified whether [place] or transplanted heart 03/20/2019 Hyperlipidemia, unspecified hyperlipidemia type 03/20/2019 Essential hypertension 03/20/2019 Carotid occlusion, bilateral 03/20/2019 S/p bare metal coronary artery stent 03/20/2019 Insomnia, unspecified type 03/20/2019 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 03/20/2019 Chronic kidney disease 06/15/2016 Overview (03/20/2019): Overview: Chronic kidney disease, unspecified stage Diverticulosis Immunizations Name Administration Dates Next Due Fluzone 6 Months+ Quad (0.5 mL Prefilled Syringe ) 04/19/2020,03/20/2019 Influenza Adult (Generic) 03/20/2019 Pneumococcal (Pneumovax 23) 03/20/2019 Tdap (Boostrix) 03/20/2019 Family History Medical History Relation Comments Heart Disease Father Relation Status Comments Father Mother Social History Tobacco Use Types Packs/Day Years [...] Sign Reading Time Taken Comments Blood Pressure 149/70 04/16/2020 2:38 PM BIBLE READER Pulse 76 04/16/2020 2:38 PM BIBLE READER Temperature - - Respiratory Rate - - Oxygen Saturation 98% 07/10/2019 4:03 PM CDT Inhaled Oxygen Concentration - - Weight 86.6 kg (191 lb) 07/10/2019 4:03 PM CDT Height 172.7 cm (5' 8 ) 04/16/2020 2:37 PM BIBLE READER Body Mass Index 29.91 07/10/2019 4:03 PM CDT Plan of Treatment Health Maintenance Due Date Last Done Comments ASCVD LDL 1950 ASCVD Statin 1950 PHQ-2 (Physician [place]) 1962 Hepatitis C 1968 Zoster Vaccines (1 of 2) 2000 RSV Immunization or 60+ Years (1 - Risk 60-74 years 1-dose series) 2010 Annual Medicare Wellness Visit 07/21/2015 Pneumococcal Vaccine: 65+ Years (2 of 2 - PCV) 03/20/2020 03/20/2019 COVID-19 Vaccine (1 - 2023-2 5 season) 2023 Influenza Adult (#1) 2024 04/19/2020, 03/20/2019, 03/20/2019 PHQ-2 (Physician [place]) 04/30/2024 DTaP, Tdap and Td Vaccines ( 2 - Td or Tdap) 03/20/2029 03/20/2019 Colorectal Cancer Screening Colonoscopy (10 Years) 06/23/2032 06/23/2022, 04/08/2020 Meningococcal B Vaccine Aged Out No l onger eligible based on patient's age to complete this topic Meningococcal Vaccine Aged Out No samantha thomas eligible based on patient's age to complete this topic RSV Immunizations Under 20 Months Aged Out No longer eligible b ased on patient's age to complete this topic Procedures Procedure Name Priority Date/Time Associated Diagnosis Comments COLONOSCOPY GENERIC (SCAN ORDER) 06/23/2022 from Last 3 Months or Most Recently Relevant to Health Maintenance Results * COLONOSCOPY GENERIC (06/23/2022) 06/23/2022 [facility] Scanned SCANNING Final Resu lt from Last 3 Months or Most Recently Relevant to Health Maintenance Insurance
== END 2024-07-22 12:22 | disposition home or self-care (01) ==
LOC: ANHIMG 12:24
PROVIDERS: PCP Family Medicine; Visit Provider Nurse Practitioner Adult Health
DX: R09.89 Other specified symptoms and signs involving the circulatory and respiratory systems (principal); I65.23 Occlusion and stenosis of bilateral carotid arteries
CPT/HCPCS: 93880

== ENCOUNTER 2024-08-19 13:27 | Outpatient (CLI) | payer MEDICARE, SELFPAY ==
--- NOTE | ~2024-08-19 | MR_ITS ---
MRI of the right hand CLINICAL HISTORY: Pain TECHNIQUE: Axial T1-weighted and T2 fat-sat images, coronal T1-weighted and T2 fat-sat images, and sa gittal T1-weighted and T2 fat-sat images were acquired. FINDINGS: Bone marrow signals are unremarkable. No fracture or marrow edema identified. No evidence f or osteitis. There are mild degenerative changes of the metacarpophalangeal joints and interphalangea l joints diffusely in the hand. No joint effusion evident. No erosive change evident. Collateral liga ments appear intact. Flexor and extensor tendons appear intact. No soft tissue mass or fluid collection seen. Intrinsic mu sculature of the hand is unremarkable. IMPRESSION: Minimal polyarticular osteoarthritis throughout the hand, as above. No acute abnormality seen. Reviewed, dictated and finalized at [facility]. IMPRESSION: Minimal polyarticular osteoarthritis throughout the hand, as above. No acute ab normality seen.
--- OUTSIDE RECORDS SUMMARY | 2024-08-19 15:16 | XMS_ITS | Encounter Summary ---
Author Organization [facility] Address [address] [place] [address] Care Team Providers Care Geophysics Scientist Name Role Phone Jesus Manjarrez MD Primary Care Provider [phone] Encounter Details Date Type Department Care Team (Late st Contact Info) Description 07/25/2024 Results Follow-Up [facility] Cardiology [address] [facility] [address] [place] [address] Isabel Agarwal NP [address] [facility] [address] [place] [address] Social History Tobacco Use Types Packs/Day Years [...] on file Legal Sex Male 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
--- OUTSIDE RECORDS SUMMARY | 2024-08-19 15:16 | XMS_ITS ---
Author Organization [facility] [place] [address] Address [address] [place] [address] Care Team Providers Care Greaser Operator Name Role Phone Jesus Manjarrez MD Primary Care Provider [phone] Active Problems Problem Noted Date Diagnosed Date [...]
--- OUTSIDE RECORDS SUMMARY | 2024-08-19 15:16 | XMS_ITS | Encounter Summary ---
Author Organization [facility] Address [address] [facility] [address] [place] [address] Care Team Providers Care Breadman Name Role Phone Alexy Fernandez MD Primary Care Provider [phone] Alexy Fernandez MD Primary Care Provider [phone] Jesus Manjarrez MD Primary Care Provider [phone] Manjeet Knight DO Primary Care Provider [phone] Jesus Manjarrez MD Primary Care Provider [phone] Encounter Details Date Type Department Care Team (Late st Contact Info) Description 06/01/2016 Orders Only [facility] ProviderMony MD [address] [place] [address] Social History Tobacco Use Types Packs/Day Years Used Date Smoking Tobacco: Former Alcohol Use Standard Drinks/Week Comments Yes 0 (1 standard drink = 0.6 oz pur e alcohol) Sex and Gender Information Value Date Recorded Sex Assigned at Not on file Legal Sex Male 2:07 AM DISABILITY HEARING OFFICER Gender Identity Not on file Sexual Orientation [...] on filedocumented in this encounter Care Teams Breadman Relationship Specialty Start Date End Date Alexy Fernandez MD [address] [place] [address] PCP - General 07/28/16 06/17/19 Alexy Fernandez MD [address] [place] [address] PCP - General 12/09/13 07/27/16 Jesus Manjarrez MD [address] [place] [address] PCP - General Family Practice 06/18/19 09/28/20 Manjeet Knight DO [address] [place] [address] PCP - General Family Medicine 09/29/20 04/17/23 Jesus Manjarrez MD [address] [place] [address] PCP - General Family Practice 04/18/23 documented as of this encounter
--- OUTSIDE RECORDS SUMMARY | 2024-08-19 15:16 | XMS_ITS | Referral Summary ---
Author Organization [address] [place] [address] Care Team Providers Care Account Maintenance Representative Name Role Phone Jesus Manjarrez MD Primary Care Provider [phone] Encounters Date Type Department Care Team Description 07/25/2024 Results Follow-Up [facility] Cardiology [address] [place] [address] [address] [place] [address] Isabel Agarwal NP 07/01/2024 1:30 PM DEPUTY DIRECTOR OF PUBLIC WORKS Office Visit [address] [address] Isabel Agarwal NP Coronary artery disease involving [place] coronary artery of [place] heart without angina pectoris; Status post angioplasty with stent; Mixed dyslipidemia; Lipid screening; Statin intolerance; Essential hypertension; Bruit of right carotid artery 06/03/2024 Telephone [facility] Cardiology [address] [place] [address] Godfrey Blanchard MD Med Refill from Last 3 Months Allergies No known active allergies Medications multivitamin-minera ls-lutein tablet Take by mouth daily. Active calcium-vitamin D3-vitamin K 500 mg-1,000 unit-40 mcg tablet,chewable Take by mouth daily. Active cholecalciferol (VITAMIN D-3) 1,000 unit Take 1 tablet/capsu le (1,000 Units total) by mouth daily Active [...] TABLET(10 MG) BY MOUTH DAILY 30 tablet 11 4 Active lisinopriL (PRINIVIL,ZESTRIL) 40 mg tablet TAKE 1 TABLET(40 MG) BY MOUTH DAILY 90 tablet 5 Active clopidogreL (PLAVIX) 75 mg tablet Take 1 tablet (75 mg total) by mouth daily 90 tablet 5 Active metoprolol XL (TOPROL-XL) 25 mg extended release tabletIndications:C oronary artery disease involving [place] coronary artery of [place] heart without angina pectoris Take 1 tablet (25 mg total) by mouth daily 90 tablet 3 5 07/02/19 26 Active evolocumab (REPATHA) syringe syringeIndications: atherosclerotic cardiovascular disease Inject 1 mL (140 mg total) under the skin every 14 (fourteen) days 2 mL 11 5 Active Active Problems Problem Noted Date Diagnosed [...] on file Legal Sex Male 2:07 AM DEPUTY DIRECTOR OF PUBLIC WORKS Gender Identity Not on file Sexual Orientation Not on file Last Filed Vital Signs Vital Sign Reading Time Taken Comments Blood Pressure 160/68 07/01/2024 1:39 PM DEPUTY DIRECTOR OF PUBLIC WORKS Pulse 77 07/01/2024 1:39 PM DEPUTY DIRECTOR OF PUBLIC WORKS Temperature 36.6 C (97.8 F) 05/25/2023 7:52 AM DEPUTY DIRECTOR OF PUBLIC WORKS Respiratory Rate 18 05/25/2023 12:05 PM DEPUTY DIRECTOR OF PUBLIC WORKS Oxygen Saturation 98% 07/01/2024 1:39 PM DEPUTY DIRECTOR OF PUBLIC WORKS Inhaled Oxygen Concentration - - Weight 83 kg (183 lb) 07/01/2024 1:39 PM DEPUTY DIRECTOR OF PUBLIC WORKS Height 172.7 cm (5' 8 ) 07/01/2024 1:39 PM DEPUTY DIRECTOR OF PUBLIC WORKS Body Mass Index 27.83 07/01/2024 1:39 PM DEPUTY DIRECTOR OF PUBLIC WORKS Plan of Treatment Not on file Medical Devices Implanted Type Area Structured Cabling Technician Device Identifier Shelf Expiration Date Model / Serial / Lot SOA Software Device Vascular Closure Femoral Artery Bioabsorbable Dual Method Vascade 6-7fr Collagen [id number] - [id number] Implanted:Qty: 1 on 05/25/2023 by Godfrey Blanchard MD at [facility] [employer] [facility] 12/21/2024 [id number] / / [id number] Procedures Procedure Name Priority Date/Time Associated Diagnosis Comments POCT LIPID PANEL Routine 07/01/2024 1:47 PM DEPUTY DIRECTOR OF PUBLIC WORKS Lipid screening US CAROTIDS DUPLEX BILATERAL Routine 07/01/2024 Bruit of right carotid artery from Last 3 Months Results * POCT lipid panel (07/01/2024 1:47 PM DEPUTY DIRECTOR OF PUBLIC WORKS) Cholesterol, POC 249 mg/dL HDL, POC 15 mg/dL Triglycerides, POC 92 mg/dL LDL Cholesterol POC 217 mg/dL Chol/HDL Ratio, POC - Non-HDL Cholesterol, POC - mg/dL Cholesterol Total, POC 249 mg/dL Capillary blood 07/01/2024 1 :47 PM DEPUTY DIRECTOR OF PUBLIC WORKS us Isabel Agarwal FLOOR FINISHER HELPER POINT OF CARE TEST ORDERA BLES Final Result * US Carotids Duplex Bilateral (07/01/2024) Anatomical Region Laterality Modality Vascular Bilateral Ultrasound us Isabel Agarwal FLOOR FINISHER HELPER IMG US PROCEDURES Final R esult from Last 3 Months Insurance MEDICARE Epos [facility] MEDICARE ADVANTAGE [facility] MEDICARE Address: [address] [address] Care Teams Account Maintenance Representative Relationship Specialty Start Date End Date Jesus Manjarrez MD PCP - General Family Practice 04/18/23
--- OUTSIDE RECORDS SUMMARY | 2024-08-19 15:17 | XMS_ITS | Encounter Summary ---
Author Organization [facility] Address [address] [place] [address] Care Team Providers Care Music Industry Internship Name Role Phone Manjeet Knight DO Primary Care Provider Christa Mary MD Primary Care Provider [phone] Encounter Details Date Type Department Care Team (Late st Contact Info) Description 10/14/2020 [facility] Enc [facility] Family Medicine - [place] [address] [facility], [address] [place] [address] [facility] Med[facility] Social History Tobacco [...] on filedocumented in this encounter Care Teams Music Industry Internship Relationship Specialty Start Date End Date Manjeet Knight DO PCP - General FAMILY PRACTICE 04/16/20 04/18/22 Christa Mary MD [address] [place] [address] PCP - General FAMILY PRACTICE 05/02/22 04/02/23 documented as of this encounter
--- OUTSIDE RECORDS SUMMARY | 2024-08-19 15:17 | XMS_ITS | Clinical Summary ---
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 TAKE 1 TABLET(60 MG) BY MOUTH TWICE DAILY 180 tablet 3 04/05/2021 Active Active Problems Problem Noted Date Diagnosed Date Obstructive sleep apnea syndrome 04/16/2020 Squamous cell carcinoma of skin of other parts o f face 09/09/2019 SK (seborrheic keratosis) 04/04/2019 Coronary artery disease with out angina pectoris, unspecified vessel or lesion type, unspecified whether [place] or transplanted heart 03/20/2019 Hyperlipidemia, unspecified hyperlipidemia type 03/20/2019 Essential hypertension 03/20/2019 Carotid occlusion, bilateral 03/20/2019 S/p bare metal coronary artery stent 03/20/2019 Insomnia, unspecified type 03/20/2019 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 03/20/2019 Chronic kidney disease 06/15/2016 Overview (03/20/2019): Overview: Chronic kidney disease, unspecified stage Diverticulosis Immunizations Immunization Administration Dates Next Due Fluzone 6 Months+ [...] Comments Blood Pressure 149/70 04/16/2020 2:38 PM STORE SALES CONSULTANT Pulse 76 04/16/2020 2:38 PM STORE SALES CONSULTANT Temperature - - Respiratory Rate - - Oxygen Saturation 98% 07/10/2019 4:03 PM CDT Inhaled Oxygen Concentration - - Weight 86.6 kg (191 lb) 07/10/2019 4:03 PM CDT Height 172.7 cm (5' 8 ) 04/16/2020 2:37 PM STORE SALES CONSULTANT Body Mass Index 29.91 07/10/2019 4:03 PM CDT Plan of Treatment Health Maintenance Due Date Last Done Comments ASCVD LDL 1950 ASCVD Statin 1950 Hepatitis C 1968 Zoster Vaccines (1 of 2) 2000 RSV Immunization or 60+ Years (1 - Risk 60-74 years 1-dose series) 2010 Annual Medicare Wellness Visit 07/21/2015 Pneumococcal Vaccine: 50+ Years (2 of 2 - PCV) 03/20/2020 03/20/2019 COVID-19 Vaccine (1 - 2023-2 5 season) 2023 PHQ-2 (Physician [place]) 04/30/2024 DTaP, Tdap and Td Vaccines ( [...]
--- OUTSIDE RECORDS SUMMARY | 2024-08-19 15:17 | XMS_ITS | CONTINUITY OF CARE DOCUMENT ---
Author Name scarlet novak Address Unknown Organization [facility] Address [address] [place] [address] Phone [phone] Care Team Providers Care Hydraulic Repairer Name Role Phone Jef Thompson MD Unavailable [phone] Jef Thompson MD Unavailable [phone] INSURANCE PROVIDERS Payer name Policy type / Coverage type [place] red green party ID AARP [facility] ADVANTAGE PLAN 2 (HMO-POS) Medicare [id number]
--- OUTSIDE RECORDS SUMMARY | 2024-08-19 15:17 | XMS_ITS | Encounter Summary ---
Author Organization [facility] Address [facility] [place] [address] Care Team Providers Care Loan Interviewer Mortgage Name Role Phone Christa Mary MD Primary Care Provider [phone] Encounter Details Date Type Department Care Team (Late st Contact Info) Description 06/30/2022 [employer] Message Enc [facility] Family Medicine [address] [address] [facility] Provider Overdue for Annual Physical Social History [...] on filedocumented in this encounter Care Teams Loan Interviewer Mortgage Relationship Specialty Start Date End Date Christa Mary MD [address] [place] [address] PCP - General FAMILY PRACTICE 05/02/22 04/02/23 documented as of this encounter
--- OUTSIDE RECORDS SUMMARY | 2024-08-19 15:17 | XMS_ITS | Encounter Summary ---
Author Organization [facility] Address [address] [place] [address] Phone Care Team Providers Care Sap Business Objects Consultant Name Role Phone Jesus Manjarrez MD Primary Care Provider [phone] Manjeet Knight DO Primary Care Provider [phone] Jesus Manjarrez MD Primary Care Provider [phone] Encounter Details Date Type Department Care Team (Late st Contact Info) Description 09/05/2019 Telephone [facility] 7th [place] [address] [place] [address] Aracelis De Leon Social History Tobacco Use Types Packs/Day Years Used Date Smoking Tobacco: Never Smokeless Tobacco: Never Alcohol Use Standard Drinks/Week Comments No 0 (1 standard drink = 0.6 oz pur e alcohol) Sex and Gender Information Value Date Recorded Sex Assigned at Not on file 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
--- OUTSIDE RECORDS SUMMARY | 2024-08-19 15:17 | XMS_ITS | Clinical Summary ---
Author Organization [facility] [address] Address [address] [place] [address] Care Team Providers Care Ski Lift Mechanic Name Role Phone Jesus Manjarrez MD Primary Care Provider [phone] Allergies No known active allergies Medications multivitamin-minera [...] extended release tabletIndications:C oronary artery disease involving [place] coronary artery of [place] heart without angina pectoris Take 1 tablet [...] Department Care Team Description 07/25/2024 Results Follow-Up [facility] [address] [facility] [address] [place] [phone] Isabel Agarwal NP 07/01/2024 1:30 PM CORRECTIONS COUNSELOR Office Visit [facility] [address] [place] [address] [address] [place] [phone] Isabel Agarwal NP Coronary artery disease involving [place] coronary artery of [place] heart without angina pectoris; Status post angioplasty with stent; Mixed dyslipidemia; Lipid screening; Statin intolerance; Essential hypertension; Bruit of right carotid artery 06/03/2024 Telephone [facility] [address] [place] [address] [address] [place] [phone] Godfrey Blanchard MD Med Refill from Last [...] on file Legal Sex Male 2:07 AM CORRECTIONS COUNSELOR Gender Identity Not on file Sexual Orientation Not on file Obstetrics History Last Filed Vital Signs Vital Sign Reading Time Taken Comments Blood Pressure 160/68 07/01/2024 1:39 PM CORRECTIONS COUNSELOR Pulse 77 07/01/2024 1:39 PM CORRECTIONS COUNSELOR Temperature 36.6 C (97.8 F) 05/25/2023 7:52 AM CORRECTIONS COUNSELOR Respiratory Rate 18 05/25/2023 12:05 PM CORRECTIONS COUNSELOR Oxygen Saturation 98% 07/01/2024 1:39 PM CORRECTIONS COUNSELOR Inhaled Oxygen Concentration - - Weight 83 kg (183 lb) 07/01/2024 1:39 PM CORRECTIONS COUNSELOR Height 172.7 cm (5' 8 ) 07/01/2024 1:39 PM CORRECTIONS COUNSELOR Body Mass Index 27.83 07/01/2024 1:39 PM CORRECTIONS COUNSELOR Plan of Treatment Health Maintenance Due Date [...] 2018 Fall Risk Assessment 05/25/2024 05/25/2023, 02/03/20 21 DTaP/Tdap/Td Vaccine (2 - Td or Tdap) 03/20/2029 Medical Devices Implanted Type Area Flare Stitcher Device Identifier Shelf Expiration Date Model / Serial / Lot [email or web address] Device Vascular Closure Femoral Artery Bioabsorbable Dual Method Vascade 6-7fr Collagen [id number] - [id number] Implanted:Qty: 1 on 05/25/2023 by Godfrey Blanchard MD at [facility] [employer] 12/21/2024 [id number] / / [id number] Procedures Procedure Name Priority Date/Time Associated Diagnosis Comments POCT LIPID PANEL Routine 07/01/2024 1:47 PM CORRECTIONS COUNSELOR Lipid screening US CAROTIDS DUPLEX BILATERAL Routine 07/01/2024 Bruit of right carotid artery from Last 3 Months Results * POCT lipid panel (07/01/2024 1:47 PM CORRECTIONS COUNSELOR) Cholesterol, POC 249 mg/dL HDL, POC 15 mg/dL Triglycerides, POC 92 mg/dL LDL Cholesterol POC 217 mg/dL Chol/HDL Ratio, POC - Non-HDL Cholesterol, POC - mg/dL Cholesterol Total, POC 249 mg/dL Capillary blood 07/01/2024 1 :47 PM CORRECTIONS COUNSELOR Isabel Agarwal NP POINT OF CARE TEST ORDERA BLES Final Result * US Carotids Duplex Bilateral (07/01/2024) Anatomical Region Laterality Modality Vascular Bilateral Ultrasound Isabel Agarwal NP IMG US PROCEDURES Final R esult from Last 3 Months Insurance MEDICARE BLUE [facility] Address: [address] [place] [address] [facility] MEDICARE ADVANTAGE Care Teams Ski Lift Mechanic Relationship Specialty Start Date End Date Jesus Manjarrez MD PCP - General Family Practice 04/18/23
== END 2024-08-19 13:28 | disposition home or self-care (01) ==
PROVIDERS: PCP Family Medicine; Visit Provider Family Medicine
DX: M19.041 Primary osteoarthritis, right hand (principal)
CPT/HCPCS: 73218

== ENCOUNTER 2024-09-09 09:52 | Outpatient (CLI) | payer MEDICARE, SELFPAY ==
--- OUTSIDE RECORDS SUMMARY | 2024-09-09 09:50 | XMS_ITS | CONTINUITY OF CARE DOCUMENT ---
Author Name scarlet novak Address Unknown Organization [facility] Address [address] [place] [address] Phone [phone] Care Team Providers Care Hospital Social Worker Name Role Phone Jef Thompson MD Unavailable [phone] Jef Thompson MD Unavailable INSURANCE PROVIDERS Payer name Policy type / Coverage type [place] red [place] party ID AARP [facility] ADVANTAGE PLAN 2 (HMO-POS) Medicare [id number]
--- OUTSIDE RECORDS SUMMARY | 2024-09-09 09:50 | XMS_ITS | Encounter Summary ---
Author Organization [facility] Address [facility] [place] [address] Care Team Providers Care Airplane Fueler Name Role Phone Christa Mary MD Primary Care Provider Encounter Details Date Type Department Care Team (Late st Contact Info) Description 06/30/2022 [employer] Message Enc [facility] Family Medicine [address] [address] [facility] Provider Overdue for Annual Physical Social [...] on filedocumented in this encounter Care Teams Airplane Fueler Relationship Specialty Start Date End Date Christa Mary MD [address] [place] [address] PCP - General FAMILY PRACTICE 05/02/22 04/02/23 documented as of this encounter
--- OUTSIDE RECORDS SUMMARY | 2024-09-09 09:50 | XMS_ITS | Encounter Summary ---
Author Organization [facility] Address [address] [place] [address] Care Team Providers Care Painter Ordnance Name Role Phone Manjeet Knight DO Primary Care Provider [phone] Christa Mary MD Primary Care Provider [phone] Encounter Details Date Type Department Care Team (Late st Contact Info) Description 10/14/2020 [employer] Message Enc [facility] Family Medicine - [place] [address] [facility] [place] [address] [facility] Medication Social History Tobacco [...] on filedocumented in this encounter Care Teams Painter Ordnance Relationship Specialty Start Date End Date Manjeet Knight DO PCP - General FAMILY PRACTICE 04/16/20 04/18/22 Christa Mary MD [address] [place] [address] PCP - General FAMILY PRACTICE 05/02/22 04/02/23 documented as of this encounter
--- OUTSIDE RECORDS SUMMARY | 2024-09-09 09:50 | XMS_ITS | Clinical Summary ---
Author Organization [facility] Address [facility] [place] [address] Care Team Providers Care Boom Operator Name Role Phone Unavailable Primary Care Provider [...] Active BRILINTA 60 MG tabletIndications :Hx of intermediate card tender use of blood thinners TAKE 1 TABLET(60 MG) BY MOUTH TWICE DAILY 180 tablet 3 04/05/2021 Active Active Problems Problem Noted Date Diagnosed Date Obstructive sleep apnea syndrome 04/16/2020 Squamous cell carcinoma of skin of other parts o f face 09/09/2019 SK (seborrheic keratosis) 04/04/2019 Coronary artery disease with out angina pectoris, unspecified vessel or lesion type, unspecified whether cher[place]ae heights or transplanted heart 03/20/2019 Hyperlipidemia, unspecified hyperlipidemia [...] Comments Blood Pressure 149/70 04/16/2020 2:38 PM GRADER TENDER Pulse 76 04/16/2020 2:38 PM GRADER TENDER Temperature - - Respiratory Rate - - Oxygen Saturation 98% 07/10/2019 4:03 PM CDT Inhaled Oxygen Concentration - - Weight 86.6 kg (191 lb) 07/10/2019 4:03 PM CDT Height 172.7 cm (5' 8 ) 04/16/2020 2:37 PM GRADER TENDER Body Mass Index 29.91 07/10/2019 4:03 PM [...] - 2023-2 5 season) 2023 PHQ-2 (Physician Sumner) 04/30/2024 DTaP, Tdap and Td Vaccines ( [...]
--- OUTSIDE RECORDS SUMMARY | 2024-09-09 10:02 | XMS_ITS | CONTINUITY OF CARE DOCUMENT ---
Author Name scarlet novak Address Unknown Organization [facility] Address [address] [place] [address] Phone [phone] Care Team Providers Care Director Industrial Relations Name Role Phone Jef Thompson MD Unavailable [phone] Jef Thompson MD Unavailable [phone] INSURANCE PROVIDERS Payer name Policy type / Coverage type [place] red [place] party ID AARP [facility] ADVANTAGE PLAN 2 (HMO-POS) Medicare [id number]
[2024-09-09 10:20] LABS: Basophils Percent Auto 0.6 % (0.2-1.2); Eosinophils Absolute Auto 0.1 K/mm3 (0-0.3); Eosinophils Percent Auto 1.3 % (0-4.4); Hematocrit 37.5 % (42.0-52.0); Hemoglobin 12.2 g/dL (14.0-18.0); Immature Granulocyte Absolute 0.03 K/mm3 (0.00-0.031); Immature Granulocyte Percent A 0.4 % (0-0.5); Lymphocytes Absolute Auto 1.83 K/mm3 (0.9-3.2); Lymphocytes Percent Auto 25.8 % (18.3-44.2); Mean Corpuscular HGB Conc 32.5 g/dl (32-36); Mean Corpuscular Hemoglobin 29.2 pg (26-34); Mean Corpuscular Volume 89.7 fl (80-100); Mean Platelet Volume 10.3 fl (7.4-10.4); Monocytes Absolute Auto 0.6 K/mm3 (0.1-0.6); Monocytes Percent Auto 8.9 % (2.6-8.5); Neutrophils Absolute Auto 4.5 K/mm3 (1.3-6.7); Platelet Count Result 287 k/mm3 (150-375); Red Blood Count 4.18 M/mm3 (4.6-6.20); Red Cell Distribution Width 13.3 % (11.5-14.5); White Blood Count 7.1 K/mm3 (4.5-10.0)
[2024-09-09 10:28] LABS: Albumin Level 4.5 g/dL (3.5-5.1); Anion Gap 9 mmol/L (4-12); Blood Urea Nitrogen 32 mg/dL (9-20); Calcium 9.4 mg/dL (8.4-10.2); Carbon Dioxide 26 mmol/L (22-30); Chloride 105 mmol/L (98-107); Estimated Glomerular Filt Rate 38; Glucose 102 mg/dL (65-110); Phosphorus 4.6 mg/dL (2.5-4.5); Potassium 4.8 mmol/L (3.4-5.0); Sodium 140 mmol/L (137-145)
[2024-09-09 10:42] LABS: Parathyroid Intact 31.3 pg/mL (14.5-75.2)
[2024-09-09 10:44] LABS: Creatinine Urine 120.5 mg/dL; Total Protein Urine Random 24 mg/dL
== END 2024-09-09 09:53 | disposition home or self-care (01) ==
PROVIDERS: PCP Family Medicine; Referring Provider Family Medicine; Visit Provider Internal Medicine Nephrology
DX: I12.9 Hypertensive chronic kidney disease with stage 1 through stage 4 chronic kidney disease, or unspecified chronic kidney disease (principal); N18.31 Chronic kidney disease, stage 3a; N25.81 Secondary hyperparathyroidism of renal origin; E55.9 Vitamin D deficiency, unspecified
CPT/HCPCS: 36415; 80069; 82306; 82570; 83970; 84156; 84166; 85025

== ENCOUNTER 2024-10-28 11:15 | Outpatient (RCR) | payer MEDICARE, SELFPAY ==
--- NOTE | 2024-09-09 12:01 | OTOPEVAL1 ---
Assessment and note entered by Jovan Galeana, PRASAD/Germán, CHT OT Evaluation Information 09/09/24 Assessment Status Evaluation Diagnosis M65.341 Trigger finger, right ring finger ICD-10 Condition Codes (OT) Pain in right hand M79.641 Subjective Information Patient reports experiencing difficulties with his right hand for 8-9 months. He reports the finger used to trigger and get stuck in his palm and now it won't bend. He received a steroid injection last week and reports this has helped some. He reports functionally difficulties with writing, gripping a fishing pole, and gripping, lifting objects & tying trash bags at work (works at [email or web address]), and gripping tools when gardening. Reported Pain Level Pain Score 0: Self Report Additional Pain Score Comments No pain at rest. 09/06 with hook fist and full fist active ROM. Assessment OT Clinical Summary Patient referred to OT with dx of trigger finger. He presents with a decline in functional hand use due to deficits with pain, weakness, and reduced tendon glide of the right ring finger. Patient responded well to paraffin, manual therapy, passive, and active ROM. At the end of the session he was able to touch his finger to his palm. Instructed in HEP and he demonstrates good understanding. 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 Plan of Care Interventions Therapeutic Exercise,Manual Therapy,Therapeutic Activities,Hot Pack/Cold Pack,Ultrasound,Paraffin OT Services Indicated Yes Treatment Frequency and 1-2x/week for 8 visits Duration These treatments will address the objective and functional deficits as defined above. The patient will be advanced safely and appropriately in order for the patient to progress towards his/her prior level of function. Additional exercises will be introduced and as well as a comprehensive home exercise program upon discharge, if needed, ?to ensure carryover of functional gains achieved in the clinic. This treatment plan has been reviewed and agreement upon by the patient.
--- NOTE | 2024-09-09 12:01 | OPREHPOC ---
Outpatient Therapy Plan of Care This is a Multidisciplinary Plan of Care that may contain components documented by all disciplines (PT, OT, and ST.) OT Problem 1 OT Problem #1 Knowledge Deficit OT Goal 1 Goal / Goal Update Patient to be independent with instructed materials. Target Visit 8 OT Problem 2 OT Problem #2 Pain OT Goal 1 Goal / Goal Update Patient to report reduced (R) hand pain when attempting to make a composite fist to 0/10. Target Visit 8 OT Problem 3 OT Problem #3 Impaired Strength OT Goal 1 Goal / Goal Update 1. Patient to improve functional strength of the ( R) hand as demonstrated by being able to touch his finger to his palm when attempting to make a full fist. 2. Patient to improve functional strength of the ( R) hand as demonstrated by being able to progress to yellow putty for coordinator of evaluation strengthening x5 minutes without pain. Target Visit 8
--- NOTE | 2024-10-14 11:54 | OTOPPROG ---
Assessment and note entered by Jovan Galeana, PRASAD/Germán, CHT OT Progress Update 10/14/24 Assessment Status Progress Diagnosis M65.341 Trigger finger, right ring finger ICD-10 Condition Codes (OT) Pain in right hand M79.641 Subjective Information Patient reports progress in the right hand trigger finger, noting reduced pain and improved functional use with lifting objects, being able to tie a trash bag at work, and being able to fuel conversion technician tools when gardening. He has made progress with being able to make a fist with very mild difficulty. Improved function with gripping during ADLs and work tasks. 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 He received another steroid injection today. He reports no changes in his ability to write. Maybe a little better with being able to hold a fishing pole/ fish. ROM improvements since start of care, R ring finger: - hook fist improved from 4 cm gap to 2 cm gap - full fist improved from 3 cm gap to 0 cm gap Assessment OT Clinical Summary Patient referred to OT with dx of trigger finger. He is progressing with therapy, noted by improved ROM and reduced hand pain, which has facilitated improved functional use of his right/dominant hand for ADLs and work tasks. He continues to have catching/triggering with active ROM and he continues to respond well to modalities, manual therapy, and HEP instruction. 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 Plan of Care Interventions Therapeutic Exercise,Manual Therapy,Therapeutic Activities,Hot Pack/Cold Pack,Ultrasound,Paraffin OT Services Indicated Yes Treatment Frequency and 2x/week for 8 visits Duration These treatments will address the objective and functional deficits as defined above. The patient will be advanced safely and appropriately in order for the patient to progress towards his/her prior level of function. Additional exercises will be introduced and as well as a comprehensive home exercise program upon discharge, if needed, ?to ensure carryover of functional gains achieved in the clinic. This treatment plan has been reviewed and agreement upon by the patient.
--- NOTE | 2024-10-14 11:55 | OPREHPOC ---
Outpatient Therapy Plan of Care This is a Multidisciplinary Plan of Care that may contain components documented by all disciplines (PT, OT, and ST.) OT Problem 1 OT Problem #1 Knowledge Deficit OT Goal 1 Goal / Goal Update Patient to be independent with instructed materials. ---OT POC UPDATE 10/14/24--- Met, continue as HEP is progressed Target Visit 16 OT Problem 2 OT Problem #2 Pain OT Goal 1 Goal / Goal Update Patient to report reduced (R) hand pain when attempting to make a composite fist to 0/10. ---OT POC UPDATE 10/14/24--- Not met, 3-4/10 pain with active ROM Target Visit 16 OT Problem 3 OT Problem #3 Impaired Strength OT Goal 1 Goal / Goal Update 1. Patient to improve functional strength of the ( R) hand as demonstrated by being able to touch his finger to his palm when attempting to make a full fist. 2. Patient to improve functional strength of the ( R) hand as demonstrated by being able to progress to yellow putty for marine insurance claim examiner strengthening x5 minutes without pain. ---OT POC UPDATE 10/14/24--- 1. Met 2. Inconsistently met Target Visit 16
--- NOTE | 2024-10-20 13:50 | PCOTNOTE ---
Pt. did not arrive for appointment on this date. Pt. was called and message was left.
--- NOTE | 2024-10-28 12:02 | OTOPDC ---
Assessment and note entered by Jovan Galeana, OTR/Germán, EJREMIAH OT D/C 10/28/24 Assessment Status Discharge Diagnosis M65.341 Trigger finger, right ring finger ICD-10 Condition Codes (OT) Pain in right hand M79.641 Subjective Information Patient reports progress in the right hand trigger finger, noting reduced pain and improved functional use with being able to grasp and cast his fishing pole, improved senior software analyst to open jars and grasp a knife, and just overall use of the hand is better. He is very happy with his progress, noting it's 90% better. He is no longer experiencing pain in this hand. He reports there have been a few days where he experienced no catching/popping. Overall he notes the popping is very mild now and is no longer painful. ROM improvements since start of care, R ring finger: - hook fist improved from 2 cm gap to 1 cm gap - full fist remained WNL at 0 cm gap (R) senior software analyst strength improved from 37 to 65 lbs. No pain or triggering with senior software analyst strength assessment. Reported Pain Level Pain Score 0: Self Report Assessment OT Clinical Summary Patient referred to OT with dx of trigger finger. He presents today for re-evaluation. Progress with ROM, strength, and reduced pain noted. He is progressing with functional use and reports he is back to fishing. He demonstrates intermittent catching of the finger, but at this time it is no longer painful. Reviewed patient's HEP and is is independent with all materials. Discussed continuing another month vs. discharging with HEP. Discussed benefits of continuing with therapy and he reports he is very happy with his progress and that he is ready to go on his own. Discharging this date with patient independent with HEP. Plan of Care OT Services Indicated No
== END 2024-10-28 12:51 | disposition home or self-care (01) ==
LOC: ANHOT 11:15
PROVIDERS: PCP Family Medicine; Visit Provider Plastic Surgery
DX: M65.341 Trigger finger, right ring finger (principal)
CPT/HCPCS: 97018; 97035; 97110; 97165

== ENCOUNTER 2025-01-12 12:12 | Outpatient (CLI) | payer MEDICARE, SELFPAY ==
[2025-01-12 13:10] LABS: Albumin Level 4.2 g/dL (3.5-5.1); Anion Gap 8 mmol/L (4-12); Blood Urea Nitrogen 21 mg/dL (9-20); Calcium 9.1 mg/dL (8.4-10.2); Carbon Dioxide 28 mmol/L (22-30); Chloride 102 mmol/L (98-107); Estimated Glomerular Filt Rate 43; Glucose 123 mg/dL (65-110); Potassium 3.9 mmol/L (3.4-5.0); Sodium 138 mmol/L (137-145)
[2025-01-12 13:32] LABS: Total Protein Urine Random 49 mg/dL; Ur Ttl Prot Creatinine Ratio 0.23 mg/mg (0-0.20)
--- OUTSIDE RECORDS SUMMARY | 2025-01-12 14:13 | XMS_ITS ---
Author Organization [facility] [address] Address [address] [place] [address] Care Team Providers Care Car Ferry Master Name Role Phone Jesus Manjarrez MD Primary Care Provider [phone] Active Problems Problem Noted Date Diagnosed Date [...] Lifetime Dose Automatic Entry Manual Entr y Fluoro Time 5.9 minutes 0 minutes 5.9 minutes Air kerma at the reference point (Ka,r) 304 mGy 0 mGy 304 mGy
--- OUTSIDE RECORDS SUMMARY | 2025-01-12 14:13 | XMS_ITS | Encounter Summary ---
Author Organization [facility] Address [address] [place] [address] Phone Care Team Providers Care Twine Reeling Machine Operator Name Role Phone Jesus Manjarrez MD Primary Care Provider [phone] Manjeet Knight DO Primary Care Provider [phone] Jesus Manjarrez MD Primary Care Provider [phone] Encounter Details Date Type Department Care Team (Late st Contact Info) Description 09/05/2019 Telephone [facility] 7th [place] [address] [place] [address] Aracelis De Leon Social History Tobacco Use Types Packs/Day Years Used Date Smoking Tobacco: Never Smokeless Tobacco: Never Alcohol Use Standard Drinks/Week Comments No 0 (1 standard drink = 0.6 oz pur e alcohol) Sex and Gender Information Value Date Recorded Sex Assigned at Not on file 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
--- OUTSIDE RECORDS SUMMARY | 2025-01-12 14:13 | XMS_ITS | Clinical Summary ---
Author Organization [facility] [place] [address] Address [address] [place] [address] Care Team Providers Care Smash Fixer Name Role Phone Jesus Manjarrez MD Primary Care Provider [phone] Allergies No known active allergies Medications multivitamin-minera [...] BY MOUTH DAILY 90 tablet 5 Active metoprolol XL (TOPROL-XL) 25 mg extended release tabletIndications:C oronary artery disease involving [place] coronary artery of [place] heart without angina pectoris Take 1 tablet (25 mg total) by mouth daily 90 tablet 3 5 07/02/19 26 Active evolocumab (REPATHA) syringe syringeIndications: atherosclerotic cardiovascular disease Inject 1 mL (140 mg total) under the skin every 14 (fourteen) days 2 mL 11 5 Active clopidogreL (PLAVIX) 75 mg tablet TAKE 1 TABLET(75 MG) BY MOUTH DAILY 90 tablet 2 5 Active Active Problems Problem Noted Date [...] on file Legal Sex Male 2:07 AM WAGE AND SALARY ADMINISTRATOR Gender Identity Not on file Sexual Orientation Not on file Obstetrics History Last Filed Vital Signs Vital Sign Reading Time Taken Comments Blood Pressure 160/68 07/01/2024 1:39 PM WAGE AND SALARY ADMINISTRATOR Pulse 77 07/01/2024 1:39 PM WAGE AND SALARY ADMINISTRATOR Temperature 36.6 C (97.8 F) 05/25/2023 7:52 AM WAGE AND SALARY ADMINISTRATOR Respiratory Rate 18 05/25/2023 12:05 PM WAGE AND SALARY ADMINISTRATOR Oxygen Saturation 98% 07/01/2024 1:39 PM WAGE AND SALARY ADMINISTRATOR Inhaled Oxygen Concentration - - Weight 83 kg (183 lb) 07/01/2024 1:39 PM WAGE AND SALARY ADMINISTRATOR Height 172.7 cm (5' 8) 07/01/2024 1:39 PM WAGE AND SALARY ADMINISTRATOR Body Mass Index 27.83 07/01/2024 1:39 PM WAGE AND SALARY ADMINISTRATOR Plan of Treatment Health Maintenance Due Date Last Done Comments Colon Cancer Screening-Colonoscopy 1950 Depression Screening 1950 Hepatitis C Screening 1950 Hepatitis B Screening 1968 Zoster Vaccine (1 of 2) 2000 Abdominal Aortic Aneurysm (AAA) Screen 07/21/2015 Well Visit 65+ 07/21/2015 Pneumococcal vaccine 65+ (2 of 2 - PCV) 03/20/2020 1 05/20/2018 Fall Risk Assessment 05/25/2024 05/25/2023, 02/03/20 21 Influenza Vaccine (#1) 2024 04/19/2020, 2018 DTaP/Tdap/Td Vaccine (2 - Td or Tdap) 03/20/2029 Medical Devices Implanted Type Area Clinical Academic Allergist Device Identifier Shelf Expiration Date Model / Serial / Lot userfox Device Vascular Closure Femoral Artery Bioabsorbable Dual Method Vascade 6-7fr Collagen [id number] - [id number] Implanted:Qty: 1 on 05/25/2023 by Godfrey Blanchard MD at [facility] userfox 12/21/2024 [id number] / / [id number] Insurance MEDICARE [facility] MEDICARE ADVANTAGE Care Teams Smash Fixer Relationship Specialty Start Date End Date Jesus Manjarrez MD PCP - General Family Practice 04/18/23
--- OUTSIDE RECORDS SUMMARY | 2025-01-12 14:13 | XMS_ITS | Encounter Summary ---
Author Organization [facility] Address [address] [facility] [address] [place] [id number] Care Team Providers Care Senior Payroll Specialist Name Role Phone Alexy Fernandez MD Primary Care Provider [phone] Alexy Fernandez MD Primary Care Provider [phone] Jesus Manjarrez MD Primary Care Provider [phone] Manjeet Knight DO Primary Care Provider [phone] Jesus Manjarrez MD Primary Care Provider [phone] Encounter Details Date Type Department Care Team (Late st Contact Info) Description 06/01/2016 Orders Only [facility] ProviderMony MD [address] [place] [id number] Social History Tobacco Use Types Packs/Day Years Used Date Smoking Tobacco: Former Alcohol Use Standard Drinks/Week Comments Yes 0 (1 standard drink = 0.6 oz pur e alcohol) Sex and Gender Information Value Date Recorded Sex Assigned at Not on file 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 Gender Identity Not on file Sexual [...] on filedocumented in this encounter Care Teams Senior Payroll Specialist Relationship Specialty Start Date End Date Alexy Fernandez MD [address] [place] [address] PCP - General 07/28/16 06/17/19 Alexy Fernandez MD [address] [place] [address] PCP - General 12/09/13 07/27/16 Jesus Manjarrez MD [address] [place] [address] PCP - General Family Practice 06/18/19 09/28/20 Manjeet Knight DO [address] [place] [address] PCP - General Family Medicine 09/29/20 04/17/23 Jesus Manjarrez MD [address] [place] [address] PCP - General Family Practice 04/18/23 documented as of this encounter
--- OUTSIDE RECORDS SUMMARY | 2025-01-12 14:13 | XMS_ITS | Encounter Summary ---
Author Organization [facility] Address [address] [place] [address] Care Team Providers Care Head Refrigeration Engineer Name Role Phone Jesus Manjarrez MD Primary Care Provider [phone] Encounter Details Date Type Department Care Team (Late st Contact Info) Description 05/10/[address] 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 Gender Identity Not on file Sexual Orientation Not on file documented as of this encounter Plan of Treatment Not on file documented as of this encounter Procedures Procedure Name Priority Date/Time Associated Diagnosis Comments SCAN - LABS 05/10/2024 documented in this encounter Results * SCAN - LABS (05/10/2024) us Provider Scanning Final Result documented in this encounter Visit Diagnoses Not on filedocumented in this encounter Care Teams Head Refrigeration Engineer Relationship Specialty Start Date End Date Jesus Manjarrez MD PCP - General Family Practice 04/18/23 documented as of this encounter
== END 2025-01-12 12:13 | disposition home or self-care (01) ==
PROVIDERS: PCP Family Medicine; Visit Provider Internal Medicine Nephrology
DX: I12.9 Hypertensive chronic kidney disease with stage 1 through stage 4 chronic kidney disease, or unspecified chronic kidney disease (principal); N18.32 Chronic kidney disease, stage 3b
CPT/HCPCS: 36415; 80069; 82570; 84156